=== PATIENT | female | born 1995 | race Hispanic/Latino ===

== ENCOUNTER 2018-10-31 08:56 | Emergency (ER) | payer SELFPAY ==
[2018-10-31 09:32] LABS: BASOPHILS % (AUTO) 1.1 % (0.0-5.0); EOSINOPHILS % (AUTO) 5.4 % (0.0-8.0); HEMATOCRIT 36.9 % (36-48); MEAN CORPUSCULAR HEMOGLOBIN 29.7 pg (27.0-33.0); MEAN CORPUSCULAR HGB CONC 33.1 g/dL (32.0-36.0); MEAN CORPUSCULAR VOLUME 89.9 fL (79-99); MONOCYTES % (AUTO) 7.7 % (3.0-13.0); NEUTROPHILS % (AUTO) 56.8 % (40.0-77.0); PLATELET COUNT (AUTO) 283 K/uL (130-400); RED BLOOD CELL COUNT(AUTO) 4.11 MIL/uL (4.00-5.50); WHITE BLOOD COUNT (AUTO) 8.5 K/uL (4.8-10.8)
[2018-10-31 09:38] LABS: CREATININE 0.7 mg/dL (0.5-1.5); POTASSIUM 3.7 mmol/L (3.5-5.1)
[2018-10-31 09:44] LABS: APPEARANCE,URINE Clear (CLEAR); BILIRUBIN,URINE Negative (NEGATIVE); COLOR,URINE Yellow (YELLOW); GLUCOSE, URINE (UA) Negative (NEGATIVE); KETONES,URINE Negative (NEGATIVE); LEUKOCYTE ESTERASE ,URINE Negative (NEGATIVE); NITRATE,URINE Negative (NEGATIVE); OCCULT BLOOD,URINE Large (NEGATIVE); PH,URINE 5.5 (5.0-8.0); PROTEIN,URINE Negative (NEGATIVE)
[2018-10-31 09:47] LABS: HCG,QUAL RESULT NEGATIVE (NEGATIVE)
[2018-10-31 09:48] LABS: INR 0.94 (0.85-1.15); PROTHROMBIN TIME 9.9 SEC (9.6-11.6)
[2018-10-31 10:33] LABS: RBC,URINE 26-50 /HPF (0-1)
[2018-10-31 10:35] LABS: BACTERIA,URINE Few /HPF (None Seen); WBC,URINE 0-1 /HPF (0-1)
== END 2018-10-31 10:09 | disposition home or self-care (01) ==
LOC: EDH 08:56
DX: N93.9 Abnormal uterine and vaginal bleeding, unspecified (principal); Z72.0 Tobacco use
CPT/HCPCS: 36415; 80048; 81001; 81025; 84702; 85025; 85610; 85730

== ENCOUNTER 2025-01-21 09:35 | Emergency (ER) | payer BC ==
[~2025-01-21] VITALS: Ht 157.5 cm; Wt 104.3 kg
--- NOTE | 2025-01-21 10:37 | HMCIMG ---
Exam Type: WRIST 2VWS LT Clinical Information: strain Comparison: None Findings: The bone examination is unremarkable. No fractures or dislocations are seen. No radiopaque foreign bodies are noted. Soft tissues are preserved. IMPRESSION: Normal examination.
--- NOTE | 2025-01-21 10:39 | HMCIMG ---
Exam Type: SHOULDER COMP 2+VWS LT Clinical Information: pain, reduced movement. Comparison: None FINDINGS: The examination is unremarkable. Specifically, the glenohumeral and acromioclavicular joints are preserved. Visualized portions of the humerus, the scapula, and the clavicle as well as the upper ribcage are unremarkable. No pulmonary pathology is noted in the visualized portions of the upper lobe. The soft tissues are preserved. There are no other gross abnormalities. IMPRESSION: NORMAL EXAMINATION.
--- NOTE | 2025-01-21 10:43 | ERN ---
ED Note History of Present Illness Stated Complaint: ARM STRAIN Chief Complaint: Upper Extremity Pain/Injury Time Seen by MD: 10:08 Time Seen by Midlevel: 10:09 Dictation: 30-year-old female presents to the emergency department due to reported having pain to the left arm primarily to the left wrist and the left shoulder due to reported having sustained a pulling type of injury 2 days ago. Patient states that she [place] tube [place] in an attempt to stop herself she felt a pulling sensation. At this time, she rates her level of discomfort as a 6/10. Patient states that the pain is primarily with certain particular movements. Upon initial evaluation, the patient presents with a normal neurovascular examination. Allergies: Coded Allergies: No Known Drug Allergies (Unverified Allergy, Unknown, 01/21/25) Emergency Care BOX LINER: None Past Medical History Past Medical History: No Pertinent History Surgical History: None LMP: January 06, 2025 RN Note Reviewed/Agreed w/PFSH: Yes Review of System Dictation MS/Extremity: Pain to the left shoulder and left wrist Initial Vital Sign VS Vital Signs Date Time Temp Pulse Resp B/P (MAP) Pulse Ox O2 Delivery O2 Flow Rate FiO2 01/21/25 09:44 0 01/21/25 09:53 98.1 86 16 159/93 98 Room Air* 21 Physical Exam Dictation General: awake, alert, NAD Head/Face: Normocephalic, atraumatic Eyes: PERRL, EOMI ENT: Oral mucosa moist Neck: Trachea midline, supple Cardiovascular: RRR, no edema Respiratory: Symmetrical, non-labored Abdomen: Soft, non-tender, non-distended, no guarding. Skin: Warm, dry, good turgor, no rash MS/Extremity: Painful range of motion and tenderness to the left shoulder and l eft wrist. Normal neurovascular examination. Neuro: COAx4, GCS 15, steady gait, Psych: Normal behavior, mood, and affect normal Results (Laboratory/Radiology) X-RAY Comment: Two-view x-ray of the left shoulder and left wrist with no cortical anomalies or deformities as interpreted by me. ED Course ED Course Orders Procedure Category Date Status Time Shoulder Comp 2+Vws Lt RAD 01/21/25 Taken 09:54 Wrist 2vws Lt RAD 01/21/25 Resulted 10:01 Vital Signs Date Time Temp Pulse Resp B/P (MAP) Pulse Ox O2 Delivery O2 Flow Rate FiO2 01/21/25 09:53 98.1 86 16 159/93 98 Room Air* 0 21 01/21/25 09:44 0 Medical Decision Making MDM MDM: Differential diagnosis: Left shoulder sprain, left wrist sprain, left shoulder dislocation. Rationale: Tests considered and ordered secondary to shared decision making include: Previous outside records reviewed: Old ER visits. Risk of complication and/or morbidity or mortality of patient management: None Medications-Per medication reconciliation Need for hospitalization: Patient does not meet criteria for hospitalization. Need for emergency major/minor surgery: No There are no social concerns with this patient. Prescription drug management Prescriptions will include symptomatic care Patient's prior external medical records from other ER visits were reviewed by me as indicated. Prior testing and results from previous visits were reviewed. Prior tests were taken into account with medical decision making and resource utilization, independent historian/historians were used to obtain complete medical history. I independently interpreted the test that were performed, results were reviewed by me and considered findings on radiology if ordered. Medical management and examination interpretation discussions were had by me with other qualified healthcare professionals as indicated for the patient's care. DX & DISP Disposition: Discharge Departure Impression: Primary Impression: Sprain of left shoulder Additional Impression: Left wrist sprain Condition: Stable Referrals: LALY KOHLI MD (PCP) MISTY CRAWLEY Jan 21, 2025 10:43
[2025-01-21 11:21] VITALS: BP 148/90; PULSE 84; RESP 16; TEMP 98.1; O2SAT 98
== END 2025-01-21 11:22 | disposition home or self-care (01) ==
LOC: EDH 09:35
DX: S43.402A Unspecified sprain of left shoulder joint, initial encounter (principal); S63.502A Unspecified sprain of left wrist, initial encounter; X58.XXXA Exposure to other specified factors, initial encounter; Y93.89 Activity, other specified; Y92.89 Other specified places as the place of occurrence of the external cause; Y99.8 Other external cause status
CPT/HCPCS: 73030; 73100; 99283